=== PATIENT | male | born 1960 | race Caucasian/White ===

== ENCOUNTER 2018-11-09 17:36 | Emergency (ER) | payer OTHER ==
[~2018-11-09] VITALS: Ht 182.9 cm; Wt 90.7 kg
[2018-11-09 17:42] VITALS: Ht 182.9 cm; Wt 90.7 kg
[2018-11-09 18:14] LABS: BASOPHIL % 0.3 % (0-2); PLATELET COUNT 224 x10^3mcL (130-400); RED CELL DISTRIBUTION WIDTH 13.8 % (11.5-14.5)
[2018-11-09 18:24] LABS: CALCIUM 9.4 mg/dL (8.5-10.1); CHLORIDE SERUM 107 mmol/L (98-107); GFR1 > 60 mL/min; GLUCOSE SERUM 121 mg/dL (74-106); POTASSIUM SERUM 4.1 mmol/L (3.5-5.1); SODIUM SERUM 146 mmol/L (136-145)
[2018-11-09 18:28] LABS: ALKALINE PHOSPHATASE 67 U/L (46-116); ALT/SGPT 72 U/L (16-63); AST/SGOT 31 U/L (15-37); BILIRUBIN TOTAL 1.1 mg/dL (0.20-1.00); TOTAL PROTEIN, SERUM 7.2 g/dL (6.4-8.2)
[2018-11-09 21:41] VITALS: BP 128/79
== END 2018-11-09 23:27 | disposition short-term general hospital (02) ==
LOC: ED 17:36
PROVIDERS: Emergency Medicine
DX: S21.112A Laceration without foreign body of left front wall of thorax without penetration into thoracic cavity, initial encounter (principal); F32.9 Major depressive disorder, single episode, unspecified; G20 Parkinson's disease; W45.8XXA Other foreign body or object entering through skin, initial encounter; Y93.89 Activity, other specified; Y92.89 Other specified places as the place of occurrence of the external cause; Y99.8 Other external cause status
CPT/HCPCS: 36415; G0480; J2001; Q0092